=== PATIENT | female | born 1970 | race Native Hawaiian/Other Pacific Islander ===

== ENCOUNTER 2017-07-07 03:22 | Emergency (ER) | payer MEDICAID ==
[~2017-07-07] VITALS: Ht 157.5 cm; Wt 68.0 kg
[~2017-07-07 03:22] MED LIST: DEPRESSION MED; OXYC15TA55 PO; TRAM50 PO
[2017-07-07 03:24] VITALS: BP 139/74; PULSE 76; RESP 16; TEMP 98.2; O2SAT 100
[2017-07-07] MEDS ORDERED: CIPR-9 PO (04:36)
[2017-07-07] MEDS ORDERED: METH750T PO (04:36)
[2017-07-07] MEDS ORDERED: PRED20 PO (04:36)
[2017-07-07] MEDS ORDERED: CYMB60CA PO (04:36)
[2017-07-07] MEDS ORDERED: SODIUM CHLOR 0.9% 1000 ML INJ 1,000 ML IV SCH (04:47)
--- NOTE | 2017-07-07 04:53 | PD ---
HPI Chief Complaint: Flank/Kidney Pain Time Seen by Provider: 04:39 Travel History International Travel<30 days: No Contact w/Intl Traveler<30days: No Traveled to known affect area: No History of Present Illness HPI The patient is a 46 year female who presents to the emergency department for left flank pain. The patient states she had left flank pain 2 weeks ago was seen at [facility] and was told that she may have an ovarian cyst or a kidney stone. The patient states she was placed on medications at that time and her symptoms improved. However, her abdominal pain and flank pain returned 2 days ago. The pain is located in the left flank and radiates into the superior aspect left leg and down into the left lower quadrant of the abdomen. She states she had hematuria 2 weeks ago, however, denies any current hematuria, dysuria, frequency, or urgency. She denies a vaginal bleeding or discharge, states her last menstrual cycle was 2 years ago. She denies any previous abdominal surgeries. The patient does have a history of fibromyalgia, lupus, and depression. Patient denies any assisted fever, chills, or sweats. She denies any current nausea, vomiting, diarrhea, or change in bowel habits. The patient states she was recently placed on Cipro, is unsure of what infection she had that required Cipro. PFS Past Medical History Autoimmune Disease: Yes (LUPUS) Depression: Yes Heart Rhythm Problems: No Cardiac Catheterization: No Cardiovascular Problems: No High Cholesterol: No Congestive Heart Failure: No Diabetes: No Diminished Hearing: No Respiratory: Yes Sleep Apnea: Yes (CPAP) ?: Not Past Surgical History Surgical History: No Previous Surgery Coronary Artery Bypass Graft: No Hysterectomy: Yes Social History Alcohol Use: No Tobacco Use: No Substance Use: No Allergies-Medications (Allergen,Severity, Reaction): Coded Allergies: No Known Allergies (Verified , 07/07/17) Reported Meds & Prescriptions Reported Meds & Active Scripts Active Reported Prednisone 20 Mg Tab 40 Mg PO DAILY Take 40 mg (2 tablets) daily for 5 days Methocarbamol 750 Mg Tab 750 Mg PO TID Cymbalta DR (Duloxetine HCl) 60 Mg Capdr 60 Mg PO DAILY Cipro (Ciprofloxacin HCl) 500 Mg Tab 500 Mg PO BID [Depression Med] Review of Systems Except as stated in HPI: all other systems reviewed are Neg General / Constitutional: No: Fever, Chills Cardiovascular: No: Chest Pain or Discomfort Respiratory: No: Shortness of Breath Gastrointestinal: No: Nausea, Vomiting, Diarrhea, Abdominal Pain Genitourinary: Positive: Hematuria (2 weeks ago, denies current hematuria), Flank Pain, No: Urgency, Frequency, Dysuria Musculoskeletal: Positive: Pain (pain that radiates from the left flank to the anterior aspect the left thigh) Physical Exam Narrative GENERAL: Awake, alert, nontoxic-appearing 46-year-old female who appears her stated age and is in no acute respiratory distress. SKIN: Focused skin assessment warm/dry. HEAD: Atraumatic. Normocephalic. EYES: Pupils equal and round. No scleral icterus. No injection or drainage. ENT: No nasal bleeding or discharge. Mucous membranes pink and moist. NECK: Trachea midline. No JVD. CARDIOVASCULAR: Regular rate and rhythm. No murmur appreciated. RESPIRATORY: No accessory muscle use. Clear to auscultation. Breath sounds equal bilaterally. GASTROINTESTINAL: Abdomen soft, tender palpation left flank and left lower quadrant. Back: No CVA tenderness. MUSCULOSKELETAL: No obvious deformities. No clubbing. No cyanosis. No edema. NEUROLOGICAL: Awake and alert. No obvious cranial nerve deficits. Motor grossly within normal limits. Normal speech. PSYCHIATRIC: Appropriate mood and affect; insight and judgment normal. Data Data Last Documented VS Vital Signs Date Time Temp Pulse Resp B/P (MAP) Pulse Ox O2 Delivery O2 Flow Rate FiO2 07/07/17 03:24 98.2 76 16 139/74 (95) 100 Orders Orders Complete Blood Count With Diff (07/07/17 04:47) Comprehensive Metabolic Panel (07/07/17 04:47) Lipase (07/07/17 04:47) Urinalysis - C+S If Indicated (07/07/17 04:47) Ct Abd/Pel W/O Iv Contrast (07/07/17 04:47) Iv Access Insert/Monitor (07/07/17 04:47) Ecg Monitoring (07/07/17 04:47) Oximetry (07/07/17 04:47) Morphine Inj (Morphine Inj) (07/07/17 05:00) Ondansetron Inj (Zofran Inj) (07/07/17 05:00) Sodium Chlor 0.9% 1000 Ml Inj (Ns 1000 M (07/07/17 04:47) Sodium Chloride 0.9% Flush (Ns Flush) (07/07/17 05:00) Ketorolac Inj (Toradol Inj) (07/07/17 05:00) Urine Culture (07/07/17 04:55) Labs Laboratory Tests Test 07/07/17 04:55 07/07/17 05:05 Urine Color YELLOW Urine Turbidity HAZY Urine pH 5.5 Urine Specific [place] 1.023 Urine Protein TRACE mg/dL Urine Glucose (UA) NEG mg/dL Urine Ketones NEG mg/dL Urine Occult Blood MOD Urine Nitrite NEG Urine Bilirubin NEG Urine Urobilinogen LESS THAN 2.0 MG/DL Urine Leukocyte Esterase SMALL Urine RBC /hpf Urine WBC 11 /hpf Urine Squamous Epithelial Cells 4 /hpf Urine Renal Epithelial Cells <1 /hpf Urine Calcium Oxalate Crystals MANY /hpf Urine Bacteria FEW /hpf Microscopic Urinalysis Comment CULTURE INDICATED White Blood Count 4.9 TH/MM3 Red Blood Count 3.98 MIL/MM3 Hemoglobin 12.2 GM/DL Hematocrit 36.7 % Mean Corpuscular Volume 92.3 FL Mean Corpuscular Hemoglobin 30.7 PG Mean Corpuscular Hemoglobin Concent 33.2 % Red Cell Distribution Width 13.9 % Platelet Count 200 TH/MM3 Mean Platelet Volume 9.8 FL Neutrophils (%) (Auto) 39.6 % Lymphocytes (%) (Auto) 47.4 % Monocytes (%) (Auto) 10.9 % Eosinophils (%) (Auto) 1.2 % Basophils (%) (Auto) 0.9 % Neutrophils # (Auto) 1.9 TH/MM3 Lymphocytes # (Auto) 2.3 TH/MM3 Monocytes # (Auto) 0.5 TH/MM3 Eosinophils # (Auto) 0.1 TH/MM3 Basophils # (Auto) 0.0 TH/MM3 CBC Comment DIFF FINAL Differential Comment Blood Urea Nitrogen 14 MG/DL Creatinine 0.65 MG/DL Random Glucose 92 MG/DL Total Protein 8.6 GM/DL Albumin 3.8 GM/DL Calcium Level 8.8 MG/DL Alkaline Phosphatase 128 U/L Aspartate Amino Transf (AST/SGOT) 33 U/L Alanine Aminotransferase (ALT/SGPT) 44 U/L Total Bilirubin 0.4 MG/DL Sodium Level 140 MEQ/L Potassium Level 3.6 MEQ/L Chloride Level 107 MEQ/L Carbon Dioxide Level 24.3 MEQ/L Anion Gap 9 MEQ/L Estimat Glomerular Filtration Rate 98 ML/MIN Lipase 193 U/L MDM Medical Decision Making Medical Screen Exam Complete: Yes Emergency Medical Condition: Yes Medical Record Reviewed: Yes Interpretation(s) Last Impressions Abdomen/Pelvis CT 07/07/17 0447 Signed Impressions: Service Date/Time: Friday, July 07, 2017 04:48 - CONCLUSION: 6 mm calcified stone in the extrarenal pelvis on the left side causing mild hydronephrosis. Anson Olivas MD Differential Diagnosis Differential diagnosis includes nephrolithiasis, hydronephrosis, pyelonephritis , UTI, cervicitis, PID, diverticulitis, muscle strain, radiculopathy. Narrative Course IV was established, labs are drawn and sent, and the patient was placed on cardiac telemetry monitoring and continuous pulse oximetry monitoring. Patient was administered morphine, Toradol, Zofran, and IV fluids. Noncontrast CT of the abdomen and pelvis was ordered to evaluate for nephrolithiasis. CT reveals a 6 mm stone with mild hydronephrosis. Creatinine is normal. UA reveals large amount of blood and 11 wbc's. The patient is already on Cipro. The patient was reevaluated at 5:50 AM, the patient's pain has improved. The patient will need referral from her primary physician, Dr. Beasley, to nephrology. The patient will be placed on ibuprofen, [place], and Flomax. She is advised to continue taking the Cipro. She will be provided a copy of her CT results and lab results at discharge. Diagnosis Primary Impression: Nephrolithiasis Patient Instructions: General Instructions Additional Instructions: Please provide a patient a copy of her CT results and lab results at discharge. Follow-up with your primary physician for referral to urology. Return if symptoms worsen or progress. Continue taking Cipro as previously directed. Med/Other Pt SpecificInfo: Prescription(s) given Scripts Ibuprofen (Ibuprofen) 600 Mg Tab 600 MG PO Q6H Y for Pain/Inflammation, #20 TAB 0 Refills Prov: Ethan Knapp MD 07/07/17 Hydrocodone-Acetaminophen ([place]) 5-325 mg Tab 1 TAB PO Q6H Y for PAIN, #15 TAB 0 Refills Prov: Ethan Knapp MD 07/07/17 Tamsulosin (Flomax) 0.4 Mg Cap 0.4 MG PO HS for Manage Prostate Problems, #7 CAP 0 Refills Prov: Ethan Knapp MD 07/07/17 Disposition: 01 DISCHARGE HOME Condition: Stable Ethan Knapp MD Jul 07, 2017 04:53
[2017-07-07] MEDS ORDERED: ONDANSETRON HCL 4 MG/2 ML VIAL IVP ONE (05:00)
[2017-07-07] MEDS ORDERED: MORPHINE SULFATE 4 MG/ML INJ IV PUSH ONE (05:00)
[2017-07-07] MEDS ORDERED: KETOROLAC TROMETHAMINE 30 MG/ML (IVP) VIAL IVP ONE (05:00)
[2017-07-07] MEDS ORDERED: SODIUM CHLORIDE 0.9% FLUSH 10 ML FLUSH IV FLUSH PRN (05:00)
--- NOTE | 2017-07-07 05:07 | RADRPT ---
EXAM DATE/TIME: 07/07/2017 04:48 [facility] COMPARISON: No previous studies available for comparison. INDICATIONS : Left flank pain. ORAL CONTRAST: No oral contrast ingested. RADIATION DOSE: 13.42 CTDIvol (mGy) MEDICAL HISTORY : Lupus. SURGICAL HISTORY : Hysterectomy. ENCOUNTER: Initial ACUITY: 1 day PAIN SCALE: 8/10 LOCATION: Left flank TECHNIQUE: Renal colic protocol. Volumetric scanning of the abdomen and pelvis was performed. Using automated exposure control and adjustment of the mA and/or kV according to patient size, radiation dose was kep t as low as reasonably achievable to obtain optimal diagnostic quality images. DICOM format image da ta is available electronically for review and comparison. FINDINGS: Right side: No calcified stones. No evidence of hydronephrosis. Left side: 6 mm calcified stone in the extrarenal pelvis with mild dilation of the collecting system of left kid ricki. No additional calcified stones seen in the collecting system. The distal left ureter is normal in dimension. Bladder: Nondistended. No calcifications within the lumen. Other: No dilated loops of small or large bowel. Bilateral fallopian tube metallic wires and flocculent zenaida cification in the body of the uterus measuring 11 mm, probably representing uterine fibroid. No evid ence of free fluid in the cul-de-sac. CONCLUSION: 6 mm calcified stone in the extrarenal pelvis on the left side causing mild hydronephrosis. Anson Olivas MD on July 07, 2017 at 5:03 Board Certified Radiologist. This report was verified electronically.
[2017-07-07 05:40] LABS: BACTERIA, URINE FEW /hpf; BLOOD, URINE MOD (NEG); CALCIUM OXALATE CRYSTALS,URINE MANY /hpf; COMMENT (UR) CULTURE INDICATED; CULTURE IF INDICATED CULTURE INDICATED; GLUCOSE,URINE NEG (NEG); KETONE, URINE NEG (NEG); NITRITE,URINE NEG (NEG); PH, URINE 5.5 (5.0-8.5); RENAL EPITHELIAL CELLS <1 /hpf; SQUAMOUS EPITHELIAL CELL URINE 4 /hpf (0-5); URINE COLOR YELLOW (YELLW/STRAW)
[2017-07-07 05:41] LABS: AUTOMATED NEUTROPHIL # 1.9 TH/MM3 (1.8-7.7); BASOPHIL % 0.9 % (0.0-2.0); EOSINOPHIL # 0.1 TH/MM3 (0-0.4); EOSINOPHIL % 1.2 % (0.0-4.0); HEMATOCRIT 36.7 % (35.0-46.0); HEMO FLAGS DIFF FINAL; LYMPH % 47.4 % (9.0-44.0); LYMPHOCYTE # 2.3 TH/MM3 (1.0-4.8); MEAN CELL VOLUME 92.3 FL (80.0-100.0); MEAN CORPUSCULAR HEMOGLOBIN 30.7 PG (27.0-34.0); MEAN CORPUSCULAR HGB CONC 33.2 % (32.0-36.0); MONO % 10.9 % (0.0-8.0); NEUT % 39.6 % (16.0-70.0); PLATELET COUNT 200 TH/MM3 (150-450); RED BLOOD COUNT 3.98 MIL/MM3 (4.00-5.30); RED CELL DISTRIBUTION WIDTH 13.9 % (11.6-17.2); WHITE BLOOD COUNT 4.9 TH/MM3 (4.0-11.0)
[2017-07-07 05:48] LABS: ALT (GPT) 44 U/L (10-53); ANION GAP 9 MEQ/L (5-15); AST (GOT) 33 U/L (15-37); BICARBONATE 24.3 MEQ/L (21.0-32.0); BLOOD UREA NITROGEN 14 MG/DL (7-18); CHLORIDE 107 MEQ/L (98-107); GLOMERULAR FILTRATION RATE 98 ML/MIN (>89); POTASSIUM 3.6 MEQ/L (3.5-5.1); SODIUM (NA) 140 MEQ/L (136-145)
[2017-07-07 05:50] LABS: ALKALINE PHOSPHATASE 128 U/L (45-117); TOTAL BILIRUBIN ADULT 0.4 MG/DL (0.2-1.0)
[2017-07-07] MEDS ORDERED: IBUP-232 PO (05:57)
[2017-07-07] MEDS ORDERED: NORC5TAB PO (05:57)
[2017-07-07] MEDS ORDERED: TAMS5CAP PO (05:57)
[2017-07-07 06:15] VITALS: RESP 16
== END 2017-07-07 06:29 | disposition home or self-care (01) ==
LOC: NEPE 03:22
DX: N20.0 Calculus of kidney (principal); R10.32 Left lower quadrant pain; M79.7 Fibromyalgia; M32.9 Systemic lupus erythematosus, unspecified
CPT/HCPCS: 74176; 80053; 81001; 83690; 85025; 87086; 96361; 96374; 96375; 99285; J1885; J2270; J2405; J7030

== ENCOUNTER 2018-01-31 10:46 | Observation (INO) | payer MEDICAID ==
[2018-01-31] VITALS (9 sets, daily range): BP systolic 105–150; BP diastolic 56–69; PULSE 64–84; RESP 16–18; TEMP 97.9–98.8; O2SAT 97–100
[~2018-01-31 10:46] MED LIST changes: +CIPR-9 PO; +CYMB60CA PO; +IBUP-232 PO; +METH750T PO; +NORC5TAB PO; -OXYC15TA55 PO; +PRED20 PO; +TAMS5CAP PO; -TRAM50 PO
[2018-01-31] MEDS ORDERED: SODIUM CHLORIDE 0.9% FLUSH 10 ML FLUSH IVF PRN (11:30)
[2018-01-31] MEDS ORDERED: ASPIRIN 81 MG CHEW TAB PO ONE (11:30)
--- NOTE | 2018-01-31 11:34 | PD ---
HPI Chief Complaint: Cardiac Complaint Time Seen by Provider: 11:14 Travel History International Travel<30 days: No Contact w/Intl Traveler<30days: No History of Present Illness HPI 47-year-old female with a history of lupus, depression, chronic headaches presents emergency department complaining of shortness of breath and chest pain that started Sunday. Patient states that she was upset and screaming at her children on Sunday, went to her room to lay down and her chest started hurting then. Patient points to her left midsternal region and describes it as "heavy" with associated left arm and hand heaviness. Patient states that this lasted approximately 20 minutes before resolving spontaneously. Patient states that over the next 2 days the symptoms recurred and decided to go to the urgent care today for evaluation. Patient states that they referred her to the emergency department for evaluation. Currently, says that her pain is located in the left midsternal region described as heavy although not as intense as this was on Sunday. In addition, patient says she has hand tingling but denies any numbness. Says that she feels slightly short of breath but describes it more as unable to take a deep breath. She denies any fevers, chills, cough, congestion, abdominal pain, back pain. Says that she does follow a flask cleaner and was seen last month. Says that the labs were "normal". She was diagnosed with high cholesterol and was given a cholesterol medication and an inhaler. Says her last stress test was in 2012 which was normal. She does not remember her last echocardiogram. She denies any history of TX or other cardiac complaints. PFSH Past Medical History Autoimmune Disease: Yes (LUPUS) Depression: Yes Heart Rhythm Problems: No Cardiac Catheterization: No Cardiovascular Problems: No High Cholesterol: No Chest Pain: Yes Congestive Heart Failure: No Diabetes: No Diminished Hearing: No Respiratory: Yes Sleep Apnea: Yes (CPAP) ?: Not Past Surgical History Coronary Artery Bypass Graft: No Hysterectomy: Yes Social History Alcohol Use: No Tobacco Use: No Substance Use: No Allergies-Medications (Allergen,Severity, Reaction): Coded Allergies: No Known Allergies (Verified Allergy, Unknown, 01/31/18) Reported Meds & Prescriptions Reported Meds & Active Scripts Active Reported Trazodone (Trazodone HCl) 100 Mg Tablet 100 Mg PO HS Review of Systems Except as stated in HPI: all other systems reviewed are Neg Physical Exam Narrative GENERAL: Well-developed, well-nourished in no apparent distress, resting comfortably in bed SKIN: Focused skin assessment warm/dry. HEAD: Atraumatic. Normocephalic. EYES: Pupils equal and round. No scleral icterus. No injection or drainage. ENT: No nasal bleeding or discharge. Mucous membranes pink and moist. NECK: Trachea midline. No JVD. CARDIOVASCULAR: Regular rate and rhythm. No murmur appreciated. somewhat decreased heart sounds RESPIRATORY: No accessory muscle use. Questionable rales GASTROINTESTINAL: Abdomen soft, non-tender, nondistended. Hepatic and splenic margins not palpable. MUSCULOSKELETAL: No obvious deformities. No clubbing. No cyanosis. No edema. Homans sign negative bilaterally. Mild TTP to chest wall NEUROLOGICAL: Awake and alert. No obvious cranial nerve deficits. Motor grossly within normal limits. Normal speech. PSYCHIATRIC: Appropriate mood and affect; insight and judgment normal. Data Data Last Documented VS Vital Signs Date Time Temp Pulse Resp B/P (MAP) Pulse Ox O2 Delivery O2 Flow Rate FiO2 01/31/18 11:42 100 Room Air 01/31/18 11:42 69 18 01/31/18 10:55 98.8 Orders Orders Electrocardiogram (01/31/18 11:28) Ckmb (Isoenzyme) Profile (01/31/18 11:28) Complete Blood Count With Diff (01/31/18 11:28) Comprehensive Metabolic Panel (01/31/18 11:28) D-Dimer (01/31/18 11:28) Magnesium (Mg) (01/31/18 11:28) Prothrombin Time / Inr (Pt) (01/31/18 11:28) Act Partial Throm Time (Ptt) (01/31/18 11:28) Troponin I (01/31/18 11:28) Chest, Single Ap (01/31/18 11:28) Ecg Monitoring (01/31/18 11:28) Bilateral Bp Monitoring (01/31/18 11:28) Iv Access Insert/Monitor (01/31/18 11:28) Oximetry (01/31/18 11:28) Oxygen Administration (01/31/18 11:28) Aspirin Chew (Aspirin Chew) (01/31/18 11:30) Sodium Chloride 0.9% Flush (Ns Flush) (01/31/18 11:30) Activity Bed Rest With Brp (01/31/18 12:57) Vital Signs (Adult) Q4H (01/31/18 12:57) Cardiac Rhythm .As Directed (01/31/18 12:57) Notify Dr: Other .PRN (01/31/18 12:57) Notify Dr. Parameters (01/31/18 12:57) Ckmb (Isoenzyme) Profile (01/31/18 14:43) Ckmb (Isoenzyme) Profile (01/31/18 17:43) Troponin I (01/31/18 14:43) Troponin I (01/31/18 17:43) Electrocardiogram (01/31/18 14:43) Electrocardiogram (01/31/18 17:43) ^ Obtain (01/31/18 12:57) Acetaminophen (Tylenol) (01/31/18 13:00) Patent Drafter / Telemetry [email or web address] (01/31/18 12:57) Admit Order (Ed Use Only) (01/31/18 12:57) Labs Laboratory Tests Test 01/31/18 11:43 White Blood Count 3.0 TH/MM3 Red Blood Count 4.17 MIL/MM3 Hemoglobin 12.8 GM/DL Hematocrit 37.8 % Mean Corpuscular Volume 90.8 FL Mean Corpuscular Hemoglobin 30.6 PG Mean Corpuscular Hemoglobin Concent 33.7 % Red Cell Distribution Width 13.8 % Platelet Count 216 TH/MM3 Mean Platelet Volume 9.8 FL Neutrophils (%) (Auto) 40.0 % Lymphocytes (%) (Auto) 45.8 % Monocytes (%) (Auto) 12.2 % Eosinophils (%) (Auto) 1.5 % Basophils (%) (Auto) 0.5 % Neutrophils # (Auto) 1.2 TH/MM3 Lymphocytes # (Auto) 1.4 TH/MM3 Monocytes # (Auto) 0.4 TH/MM3 Eosinophils # (Auto) 0.0 TH/MM3 Basophils # (Auto) 0.0 TH/MM3 CBC Comment DIFF FINAL Differential Comment Prothrombin Time 10.5 SEC Prothromb Time International Ratio 1.0 RATIO Activated Partial Thromboplast Time 25.2 SEC D-Dimer Quantitative (PE/DVT) LESS THAN 0.19 MG/L FEU Blood Urea Nitrogen 11 MG/DL Creatinine 0.67 MG/DL Random Glucose 74 MG/DL Total Protein 9.1 GM/DL Albumin 4.0 GM/DL Calcium Level 9.2 MG/DL Magnesium Level 2.1 MG/DL Alkaline Phosphatase 131 U/L Aspartate Amino Transf (AST/SGOT) 28 U/L Alanine Aminotransferase (ALT/SGPT) 37 U/L Total Bilirubin 0.5 MG/DL Sodium Level 136 MEQ/L Potassium Level 3.7 MEQ/L Chloride Level 101 MEQ/L Carbon Dioxide Level 28.2 MEQ/L Anion Gap 7 MEQ/L Estimat Glomerular Filtration Rate 114 ML/MIN Total Creatine Kinase 73 U/L Troponin I LESS THAN 0.02 NG/ML MDM Medical Decision Making Medical Screen Exam Complete: Yes Emergency Medical Condition: Yes Differential Diagnosis ACS, pericarditis, pericardial effusion, PE, atypical chest pain Narrative Course 47-year-old female with a history of lupus, depression, chronic headaches presents emergency department complaining of shortness of breath and chest pain that started Sunday. Patient states that she was upset and screaming at her children on Sunday, went to her room to lay down and her chest started hurting then. Patient points to her left midsternal region and describes it as "heavy" with associated left arm and hand heaviness. Patient states that this lasted approximately 20 minutes before resolving spontaneously. Patient states that over the next 2 days the symptoms recurred and decided to go to the urgent care today for evaluation. Patient states that they referred her to the emergency department for evaluation. Currently, says that her pain is located in the left midsternal region described as heavy although not as intense as this was on Sunday. In addition, patient says she has hand tingling but denies any numbness. Says that she feels slightly short of breath but describes it more as unable to take a deep breath. She denies any fevers, chills, cough, congestion, abdominal pain, back pain. Says that she does follow a flask cleaner and was seen last month. Says that the labs were "normal". She was diagnosed with high cholesterol and was given a cholesterol medication and an inhaler. Says her last stress test was in 2012 which was normal. She does not remember her last echocardiogram. She denies any history of TX or other cardiac complaints. Vital signs stable. EKG shows sinus rhythm at rate [address] elevation or depression. CXR clear, without acute process. CBC & BMP Diagram 01/31/18 11:43 Total Protein 9.1 H, Albumin 4.0, Calcium Level 9.2, Magnesium Level 2.1, Alkaline Phosphatase 131 H, Aspartate Amino Transf (AST/SGOT) 28, Alanine Aminotransferase (ALT/SGPT) 37, Total Bilirubin 0.5 Cardiac enzymes negative. D-dimer less than 0.19 CBC stable. Patient will be admitted to the chest pain center. Because patient has a history of lupus the last cardiac workup that I can see and that she remembers is 2012, I do believe it is reasonable to stay for an observation period. Says she has seen a flask cleaner however, she is unable to tell me her diagnosis except for HLD and was prescribed an inhaler. Diagnosis Primary Impression: Atypical chest pain Admitting Information Admitting Physician Requests: Observation Condition: Stable Arina Ovalle Jan 31, 2018 11:34
--- NOTE | 2018-01-31 11:54 | RADRPT ---
EXAM DATE/TIME: 01/31/2018 11:38 [facility] COMPARISON: No previous studies available for comparison. INDICATIONS : Chest pain for 4 days. MEDICAL HISTORY : [place]us. SURGICAL HISTORY : Hysterectomy. ENCOUNTER: Initial ACUITY: 4 - 6 days PAIN SCORE: 4/10 LOCATION: Bilateral chest FINDINGS: A single view of the chest demonstrates the lungs to be symmetrically aerated without evidence of mas s, infiltrate or effusion. The cardiomediastinal contours are unremarkable. Osseous structures are intact. CONCLUSION: No acute disease. Ramón Parikh MD on January 31, 2018 at 11:52 Board Certified Radiologist. This report was verified electronically.
[2018-01-31 12:02] LABS: AUTOMATED NEUTROPHIL # 1.2 TH/MM3 (1.8-7.7); BASOPHIL % 0.5 % (0.0-2.0); EOSINOPHIL % 1.5 % (0.0-4.0); HEMATOCRIT 37.8 % (35.0-46.0); HEMOGLOBIN 12.8 GM/DL (11.6-15.3); LYMPH % 45.8 % (9.0-44.0); LYMPHOCYTE # 1.4 TH/MM3 (1.0-4.8); MEAN CELL VOLUME 90.8 FL (80.0-100.0); MEAN CORPUSCULAR HEMOGLOBIN 30.6 PG (27.0-34.0); MEAN CORPUSCULAR HGB CONC 33.7 % (32.0-36.0); MEAN PLATELET VOLUME 9.8 FL (7.0-11.0); MONO % 12.2 % (0.0-8.0); MONOCYTE # 0.4 TH/MM3 (0-0.9); PLATELET COUNT 216 TH/MM3 (150-450); RED BLOOD COUNT 4.17 MIL/MM3 (4.00-5.30); RED CELL DISTRIBUTION WIDTH 13.8 % (11.6-17.2)
[2018-01-31 12:17] LABS: PROTHROMBIN TIME - PATIENT 10.5 SEC (9.8-11.6)
[2018-01-31 12:18] LABS: D-DIMER LESS THAN 0.19 MG/L FEU (0.00-0.50)
[2018-01-31 12:20] LABS: AST (GOT) 28 U/L (15-37); BICARBONATE 28.2 MEQ/L (21.0-32.0); BLOOD UREA NITROGEN 11 MG/DL (7-18); CALCIUM 9.2 MG/DL (8.5-10.1); CHLORIDE 101 MEQ/L (98-107); CREATININE 0.67 MG/DL (0.50-1.00); GLOMERULAR FILTRATION RATE 114 ML/MIN (>89); GLUCOSE,RANDOM 74 MG/DL (74-106); MAGNESIUM 2.1 MG/DL (1.5-2.5); SODIUM (NA) 136 MEQ/L (136-145)
[2018-01-31 12:21] LABS: ALT (GPT) 37 U/L (10-53)
[2018-01-31 12:24] LABS: ALKALINE PHOSPHATASE 131 U/L (45-117); TOTAL BILIRUBIN ADULT 0.5 MG/DL (0.2-1.0); TOTAL PROTEIN 9.1 GM/DL (6.4-8.2); TROPONIN I LESS THAN 0.02 NG/ML (0.02-0.05)
[2018-01-31] MEDS ORDERED: PILO5TAB3 PO (12:27)
[2018-01-31] MEDS ORDERED: TRAZ100T10 PO (12:27)
[2018-01-31] MEDS ORDERED: FLUO-1 PO (12:27)
[2018-01-31] MEDS ORDERED: ARIP2 PO (12:27)
[2018-01-31] MEDS ORDERED: ACETAMINOPHEN 500 MG CPLT PO PRN (13:00)
--- NOTE | 2018-01-31 13:04 | PD ---
Physical Exam Date Seen by Provider: Jan 31, 2018 Narrative Patient comes in with a chief complaint of chest pain. She looks well clinically. Data Data Last Documented VS Vital Signs Date Time Temp Pulse Resp B/P (MAP) Pulse Ox O2 Delivery O2 Flow Rate FiO2 01/31/18 11:42 100 Room Air 01/31/18 11:42 69 18 01/31/18 10:55 98.8 Orders Orders Electrocardiogram (01/31/18 11:28) Ckmb (Isoenzyme) Profile (01/31/18 11:28) Complete Blood Count With Diff (01/31/18 11:28) Comprehensive Metabolic Panel (01/31/18 11:28) D-Dimer (01/31/18 11:28) Magnesium (Mg) (01/31/18 11:28) Prothrombin Time / Inr (Pt) (01/31/18 11:28) Act Partial Throm Time (Ptt) (01/31/18 11:28) Troponin I (01/31/18 11:28) Chest, Single Ap (01/31/18 11:28) Ecg Monitoring (01/31/18 11:28) Bilateral Bp Monitoring (01/31/18 11:28) Iv Access Insert/Monitor (01/31/18 11:28) Oximetry (01/31/18 11:28) Oxygen Administration (01/31/18 11:28) Aspirin Chew (Aspirin Chew) (01/31/18 11:30) Sodium Chloride 0.9% Flush (Ns Flush) (01/31/18 11:30) Activity Bed Rest With Brp (01/31/18 12:57) Vital Signs (Adult) Q4H (01/31/18 12:57) Cardiac Rhythm .As Directed (01/31/18 12:57) Notify Dr: Other .PRN (01/31/18 12:57) Notify Dr. Parameters (01/31/18 12:57) Ckmb (Isoenzyme) Profile (01/31/18 14:43) Ckmb (Isoenzyme) Profile (01/31/18 17:43) Troponin I (01/31/18 14:43) Troponin I (01/31/18 17:43) Electrocardiogram (01/31/18 14:43) Electrocardiogram (01/31/18 17:43) ^ Obtain (01/31/18 12:57) Acetaminophen (Tylenol) (01/31/18 13:00) Medicare Contact Specialist / Telemetry [email or web address] (01/31/18 12:57) Admit Order (Ed Use Only) (01/31/18 12:57) Labs Laboratory Tests Test 01/31/18 11:43 White Blood Count 3.0 TH/MM3 Red Blood Count 4.17 MIL/MM3 Hemoglobin 12.8 GM/DL Hematocrit 37.8 % Mean Corpuscular Volume 90.8 FL Mean Corpuscular Hemoglobin 30.6 PG Mean Corpuscular Hemoglobin Concent 33.7 % Red Cell Distribution Width 13.8 % Platelet Count 216 TH/MM3 Mean Platelet Volume 9.8 FL Neutrophils (%) (Auto) 40.0 % Lymphocytes (%) (Auto) 45.8 % Monocytes (%) (Auto) 12.2 % Eosinophils (%) (Auto) 1.5 % Basophils (%) (Auto) 0.5 % Neutrophils # (Auto) 1.2 TH/MM3 Lymphocytes # (Auto) 1.4 TH/MM3 Monocytes # (Auto) 0.4 TH/MM3 Eosinophils # (Auto) 0.0 TH/MM3 Basophils # (Auto) 0.0 TH/MM3 CBC Comment DIFF FINAL Differential Comment Prothrombin Time 10.5 SEC Prothromb Time International Ratio 1.0 RATIO Activated Partial Thromboplast Time 25.2 SEC D-Dimer Quantitative (PE/DVT) LESS THAN 0.19 MG/L FEU Blood Urea Nitrogen 11 MG/DL Creatinine 0.67 MG/DL Random Glucose 74 MG/DL Total Protein 9.1 GM/DL Albumin 4.0 GM/DL Calcium Level 9.2 MG/DL Magnesium Level 2.1 MG/DL Alkaline Phosphatase 131 U/L Aspartate Amino Transf (AST/SGOT) 28 U/L Alanine Aminotransferase (ALT/SGPT) 37 U/L Total Bilirubin 0.5 MG/DL Sodium Level 136 MEQ/L Potassium Level 3.7 MEQ/L Chloride Level 101 MEQ/L Carbon Dioxide Level 28.2 MEQ/L Anion Gap 7 MEQ/L Estimat Glomerular Filtration Rate 114 ML/MIN Total Creatine Kinase 73 U/L Troponin I LESS THAN 0.02 NG/ML MDM Supervised Visit with VIKI: Yes Narrative Course I, Dr. Mcclure, have reviewed the advance practice practitioner's documentation and am in agreement, met with the patient face to face, made the diagnosis, and the medical decision making was done by me. *My assessment and Findings: CBC & BMP Diagram 01/31/18 11:43 Total Protein 9.1 H, Albumin 4.0, Calcium Level 9.2, Magnesium Level 2.1, Alkaline Phosphatase 131 H, Aspartate Amino Transf (AST/SGOT) 28, Alanine Aminotransferase (ALT/SGPT) 37, Total Bilirubin 0.5 Troponin less than 0.02. Please see Arina Ovalle PA-C's note for further details, lab and radiology results, final diagnosis and disposition. Condition: Stable Aundrea Mcclure MD Jan 31, 2018 13:04
[2018-01-31] MEDS ORDERED: ONDANSETRON HCL 4 MG/2 ML VIAL IV PUSH PRN (15:45)
[2018-01-31] MEDS ORDERED: ACETAMINOPHEN/HYDROcodone 325 MG/7.5 MG TAB PO PRN (15:45)
[2018-01-31] MEDS ORDERED: ALPRAZolam 0.25 MG TAB PO PRN (15:45)
[2018-01-31 15:48] LABS: TROPONIN I LESS THAN 0.02 NG/ML (0.02-0.05)
--- NOTE | 2018-01-31 15:50 | HHI.HP ---
[facility] Primary Care Physician Lacie Beasley M.D. Chief Complaint CHEST PAIN History of Present Illness This is a 47-year-old female with history of lupus, fibromyalgia, depression presents to ED with primary complaint of chest discomfort. However patient states that some of her pain began a little more than a week ago. States she is at home when she fell and hit her left side against the wall. Did not fall. There is no loss of consciousness. But she states that she essentially had discomforts all over her body. States that she went [facility] had a bunch of x-rays and found no fractures. Then 3 days ago she began having left upper chest discomfort that was intermittent. When it occurs it lasts for a few seconds at a time but recurs many times. She is found that when she gets upset the discomfort may occur at that point. She states an example that is when she was screaming at her children, states that was the first episode of discomfort. Describes it as a sharp and heavy discomfort. Denies shortness of breath, nausea, diaphoresis with her symptoms. She went to an urgent care center for evaluation and was advised to come to the ED. Denies history of hypertension, hyperlipidemia, diabetes, and CAD. States had a similar episode a few years ago and had a stress test and she believes that was normal. Upon reviewing records she had a nonischemic Lexiscan at this facility April 2013. Currently feeling okay. Denies recent illness. Denies fevers or chills. Denies . States she has followed a global manager and the global manager put her on cholesterol medication but she has not taken it. She cannot recall the name of her global manager but states has been between a year and half and 2 years ago that she saw him. Review of Systems General: Patient denies fevers, chills recent, and recent travel HEENT: Patient denies headache, sore throat, difficulty swallowing. Cardiovascular: Has the chest discomfort as mentioned above. Denies sensation of heart beating rapidly or irregularly. No syncope. Denies diaphoresis. Respiratory: Denies shortness of breath or inspirational chest discomfort. Denies coughing wheezing or hemoptysis. GI: Patient denies nausea, vomiting, diarrhea, abdominal pain, bloody stools. Musculoskeletal: Generalized aches from a fall about a week ago. Patient denies joint pain or edema. Denies calf pain or edema. Neurovascular: Patient denies numbness, tingling, weakness in extremities. Denies headache. Endocrine: Denies polyuria and polydipsia. Hematologic: Denies easy bruising. Skin: Denies rash or itching. Past Family Social History Allergies: Coded Allergies: No Known Allergies (Verified Allergy, Unknown, 01/31/18) Past Medical History Lupus, fibromyalgia, depression, hyperlipidemia however she does not take medication for hyperlipidemia as prescribed by her physician. Denies diabetes, CAD, and hypertension. Past Surgical History States she had hysterectomy. Reported Medications Reported Meds & Active Scripts Active Reported Trazodone (Trazodone HCl) 100 Mg Tablet 100 Mg PO HS Active Ordered Medications Current Medications Medications (Trade) Dose Ordered Sig/Sudarshan Route Start Time Stop Time Status Last Admin (NS Flush) 2 ml UNSCH PRN IVF 01/31/18 11:30 (Tylenol) 500 mg Q4H PRN PO 01/31/18 13:00 (Desyrel) 100 mg HS PO 01/31/18 21:00 ([place] 7.5-325 Mg) 1 tab Q4H PRN PO 01/31/18 15:45 UNV (Zofran Inj) 4 mg Q6H PRN IV PUSH 01/31/18 15:45 UNV (Aspirin) 325 mg DAILY PO 02/01/18 09:00 UNV (Xanax) 0.25 mg Q8H PRN PO 01/31/18 15:45 UNV Family History Denies family history of CAD. Social History Non-smoker. Denies alcohol or illicit drug use. Physical Exam Vital Signs Vital Signs Date Time Temp Pulse Resp B/P (MAP) Pulse Ox O2 Delivery O2 Flow Rate FiO2 01/31/18 15:31 98.2 65 16 117/56 (76) 100 01/31/18 11:42 100 Room Air 01/31/18 11:42 69 18 100 Room Air 01/31/18 11:06 84 18 150/60 (90) 100 Room Air 01/31/18 11:06 71 18 100 Room Air 01/31/18 10:55 98.8 75 16 129/69 (89) 99 Physical Exam GENERAL: This is a well-nourished, well-developed patient, in no apparent distress. Patient speaks in clear complete sentences. Patient is pleasant. HEENT: Head is atraumatic and normocephalic. Neck is supple without lymphadenopathy and trachea is midline. No JVD or carotid bruits. CARDIOVASCULAR: Regular rate and rhythm without murmurs, gallops, or rubs. RESPIRATORY: Clear to auscultation. Breath sounds equal bilaterally. No wheezes , rales, or rhonchi. Left upper chest wall is tender. No use of accessory muscles. GASTROINTESTINAL: Abdomen is nontender, nondistended. Abdomen soft. No obvious pulsatile mass or bruit. No CVA tenderness. Strong femoral pulses bilaterally. Normal bowel sounds in all quadrants. MUSCULOSKELETAL: Patient is moving upper and lower extremities freely. No calf tenderness or edema, no Homans sign. Strong pulses in upper and lower extremities. NEUROLOGICAL: Patient is alert and oriented. Cranial nerves 2-12 are grossly intact. No focal deficits and speech is clear. SKIN: No rash and turgor is normal. Laboratory Laboratory Tests Test 01/31/18 11:43 01/31/18 15:02 White Blood Count 3.0 Red Blood Count 4.17 Hemoglobin 12.8 Hematocrit 37.8 Mean Corpuscular Volume 90.8 Mean Corpuscular Hemoglobin 30.6 Mean Corpuscular Hemoglobin Concent 33.7 Red Cell Distribution Width 13.8 Platelet Count 216 Mean Platelet Volume 9.8 Neutrophils (%) (Auto) 40.0 Lymphocytes (%) (Auto) 45.8 Monocytes (%) (Auto) 12.2 Eosinophils (%) (Auto) 1.5 Basophils (%) (Auto) 0.5 Neutrophils # (Auto) 1.2 Lymphocytes # (Auto) 1.4 Monocytes # (Auto) 0.4 Eosinophils # (Auto) 0.0 Basophils # (Auto) 0.0 CBC Comment DIFF FINAL Differential Comment Prothrombin Time 10.5 Prothromb Time International Ratio 1.0 Activated Partial Thromboplast Time 25.2 D-Dimer Quantitative (PE/DVT) LESS THAN 0.19 Blood Urea Nitrogen 11 Creatinine 0.67 Random Glucose 74 Total Protein 9.1 Albumin 4.0 Calcium Level 9.2 Magnesium Level 2.1 Alkaline Phosphatase 131 Aspartate Amino Transf (AST/SGOT) 28 Alanine Aminotransferase (ALT/SGPT) 37 Total Bilirubin 0.5 Sodium Level 136 Potassium Level 3.7 Chloride Level 101 Carbon Dioxide Level 28.2 Anion Gap 7 Estimat Glomerular Filtration Rate 114 Total Creatine Kinase 73 Troponin I LESS THAN 0.02 Result Diagram: 01/31/18 1143 01/31/18 1143 Imaging Last 48 hours Impressions Chest X-Ray 01/31/18 1128 Signed Impressions: Service Date/Time: January 11:38 - CONCLUSION: No acute disease. Ramón Parikh MD Course EKGs are sinus rhythm with inverted T waves in lead III and V1. No significant ST segment depressions or elevations. Caprini VTE Risk Assessment Caprini VTE Risk Assessment: No/Low Risk (score <= 1) Caprini Risk Assessment Model Point Value = 1 Point Value = 2 Point Value = 3 Point Value = 5 Age 41-60 Minor surgery BMI > 25 kg/m2 Swollen legs Varicose veins or History of unexplained or recurrent spontaneous Oral contraceptives or hormone replacement Sepsis (< 1 month) Serious lung disease, including pneumonia (< 1 month) Abnormal pulmonary function Acute myocardial infarction Congestive heart failure (< 1 month) History of inflammatory bowel disease Medical patient at bed rest Age 61-74 Arthroscopic surgery Major open surgery (> 45 min) Laparoscopic surgery (> 45 min) Malignancy Confined to bed (> 72 hours) Immobilizing plaster cast Central venous access Age >= 75 History of VTE Family history of VTE Factor V Leiden Prothrombin [id number] Lupus anticoagulant Anticardiolipin antibodies Elevated serum homocysteine Heparin-induced thrombocytopenia Other congenital or acquired thrombophilia Stroke (< 1 month) Elective arthroplasty Hip, pelvis, or leg fracture Acute spinal cord injury (< 1 month) Prophylaxis Regimen Total Risk Factor Score Risk Level Prophylaxis Regimen 0-1 Low Early ambulation 2 Moderate Order ONE of the following: *Sequential Compression Device (SCD) *Heparin 5000 units SQ BID 3-4 Higher Order ONE of the following medications: *Heparin 5000 units SQ TID *Enoxaparin/Lovenox 40 mg SQ daily (WT < 150 kg, CrCl > 30 mL/min) *Enoxaparin/Lovenox 30 mg SQ daily (WT < 150 kg, CrCl > 10-29 mL/min) *Enoxaparin/Lovenox 30 mg SQ BID (WT < 150 kg, CrCl > 30 mL/min) AND/OR *Sequential Compression Device (SCD) 5 or more Highest Order ONE of the following medications: *Heparin 5000 units SQ TID (Preferred with Epidurals) *Enoxaparin/Lovenox 40 mg SQ daily (WT < 150 kg, CrCl > 30 mL/min) *Enoxaparin/Lovenox 30 mg SQ daily (WT < 150 kg, CrCl > 10-29 mL/min) *Enoxaparin/Lovenox 30 mg SQ BID (WT < 150 kg, CrCl > 30 mL/min) AND *Sequential Compression Device (SCD) Assessment and Plan Assessment and Plan * Chest pain: Patient will continue to have serial cardiac enzymes and EKGs for ruling out purposes. She has been seen by Dr. Sb Atkinson of cardiology in the chest pain center. She will have a stress test and if that is nonischemic, she would then be discharged home with instructions to follow-up with PCP and cardiology. Return to ED for interval issues. * Hyperlipidemia: Patient states she was diagnosed hyperlipidemia and placed on medication but has not taken it. Patient should discuss this with her physician and likely restart the medication. Patient is stable at this time. She is agreeable to this plan. Edmundo Gallegos Jan 31, 2018 15:50
[2018-01-31] MEDS ORDERED: RESP: ALBUTEROL 2.5 MG/IPRATROPIUM 0.5 MG NEB (PRN) INH (16:00)
[2018-01-31] MEDS ORDERED: cloNIDine HCL 0.1 MG TAB PO PRN (16:00)
[2018-01-31 18:45] LABS: TROPONIN I LESS THAN 0.02 NG/ML (0.02-0.05)
[2018-01-31] MEDS ORDERED: traZODone HCL 100 MG TAB PO SCH (21:00)
[2018-02-01] VITALS (7 sets, daily range): BP systolic 101–107; BP diastolic 51–63; PULSE 54–73; RESP 16; TEMP 97.7–98; O2SAT 100
--- NOTE | 2018-02-01 07:35 | PD.CARD.PN ---
Subjective Subjective Remarks No complaints overnight, sleeping when entered room Objective Medications Current Medications Medications (Trade) Dose Ordered Sig/Sudarshan Route Start Time Stop Time Status Last Admin (NS Flush) 2 ml UNSCH PRN IVF 01/31/18 11:30 (Tylenol) 500 mg Q4H PRN PO 01/31/18 13:00 (Desyrel) 100 mg HS PO 01/31/18 21:00 01/31/18 21:12 ([place] 7.5-325 Mg) 1 tab Q4H PRN PO 01/31/18 15:45 (Zofran Inj) 4 mg Q6H PRN IV PUSH 01/31/18 15:45 (Aspirin) 325 mg DAILY PO 02/01/18 09:00 (Xanax) 0.25 mg Q8H PRN PO 01/31/18 15:45 (Duoneb Neb) 1 ampule Q4HR NEB PRN INH 01/31/18 16:00 ([place]) 0.1 mg Q4H PRN PO 01/31/18 16:00 Vital Signs / I&O Vital Signs Date Time Temp Pulse Resp B/P (MAP) Pulse Ox O2 Delivery O2 Flow Rate FiO2 02/01/18 04:49 69 02/01/18 04:48 71 02/01/18 04:00 54 02/01/18 03:35 97.7 59 16 101/53 (69) 100 02/01/18 00:35 97.7 73 16 106/51 (69) 100 02/01/18 00:00 60 01/31/18 21:30 97 01/31/18 21:29 97.9 69 16 105/57 (73) 100 01/31/18 19:59 74 01/31/18 15:45 64 01/31/18 15:42 01/31/18 15:31 98.2 65 16 117/56 (76) 100 01/31/18 13:34 98.4 68 16 117/56 (76) 98 01/31/18 11:42 100 Room Air 01/31/18 11:42 69 18 100 Room Air 01/31/18 11:06 84 18 150/60 (90) 100 Room Air 01/31/18 11:06 71 18 100 Room Air 01/31/18 10:55 98.8 75 16 129/69 (89) 99 Physical Exam GENERAL: Alert WN, WD, NAD, pleasant, female HEAD: NC, AT CV: RRR, without murmur, rub, gallop, no JVD, S1-S2 no S3-S4. RESP: Clear lungs throughout bilateral, no crackles, wheeze, rhonchi, symmetrical chest rise, nonlabored, able to speak in full sentences PSYCH: A+O x3, pleasant affect, appropriate speech, mood, insight and judgment SKIN: Normal turgor, normal texture Laboratory Laboratory Tests Test 01/31/18 11:43 01/31/18 15:02 01/31/18 18:10 White Blood Count 3.0 TH/MM3 Red Blood Count 4.17 MIL/MM3 Hemoglobin 12.8 GM/DL Hematocrit 37.8 % Mean Corpuscular Volume 90.8 FL Mean Corpuscular Hemoglobin 30.6 PG Mean Corpuscular Hemoglobin Concent 33.7 % Red Cell Distribution Width 13.8 % Platelet Count 216 TH/MM3 Mean Platelet Volume 9.8 FL Neutrophils (%) (Auto) 40.0 % Lymphocytes (%) (Auto) 45.8 % Monocytes (%) (Auto) 12.2 % Eosinophils (%) (Auto) 1.5 % Basophils (%) (Auto) 0.5 % Neutrophils # (Auto) 1.2 TH/MM3 Lymphocytes # (Auto) 1.4 TH/MM3 Monocytes # (Auto) 0.4 TH/MM3 Eosinophils # (Auto) 0.0 TH/MM3 Basophils # (Auto) 0.0 TH/MM3 CBC Comment DIFF FINAL Differential Comment Prothrombin Time 10.5 SEC Prothromb Time International Ratio 1.0 RATIO Activated Partial Thromboplast Time 25.2 SEC D-Dimer Quantitative (PE/DVT) LESS THAN 0.19 MG/L FEU Blood Urea Nitrogen 11 MG/DL Creatinine 0.67 MG/DL Random Glucose 74 MG/DL Total Protein 9.1 GM/DL Albumin 4.0 GM/DL Calcium Level 9.2 MG/DL Magnesium Level 2.1 MG/DL Alkaline Phosphatase 131 U/L Aspartate Amino Transf (AST/SGOT) 28 U/L Alanine Aminotransferase (ALT/SGPT) 37 U/L Total Bilirubin 0.5 MG/DL Sodium Level 136 MEQ/L Potassium Level 3.7 MEQ/L Chloride Level 101 MEQ/L Carbon Dioxide Level 28.2 MEQ/L Anion Gap 7 MEQ/L Estimat Glomerular Filtration Rate 114 ML/MIN Total Creatine Kinase 73 U/L 65 U/L 66 U/L Troponin I LESS THAN 0.02 NG/ML LESS THAN 0.02 NG/ML LESS THAN 0.02 NG/ML Imaging Last 24 hours Impressions Chest X-Ray 01/31/18 1128 Signed Impressions: Service Date/Time: January 11:38 - CONCLUSION: No acute disease. Ramón Parikh MD Assessment and Plan Assessment and Plan #1 Chest pain-ruled out with 3 sets of EKGs and cardiac enzymes. Previously seen by Dr. Sb Atkinson. Proceed with Lexiscan this morning as previously planned. Francine Chiang Feb 01, 2018 07:35
[2018-02-01] MEDS ORDERED: ASPIRIN 325 MG TAB PO SCH (09:00)
[2018-02-01] MEDS ORDERED: REGADENOSON INJ 0.4 MG/5 ML SYR ONE (12:46)
--- NOTE | 2018-02-01 14:41 | RADRPT ---
EXAM DATE/TIME: 02/01/2018 12:13 [place] COMPARISON: MYOCARDIAL PERF PHARM SPECT, GATED W/EF, April 29, 2013, 9:02. INDICATIONS : Chest pain started 3 days ago. Angina. DOSE: 26.3 mCi Tc99m Myoview at stress. 8.5 mCi Tc99m Myoview at rest. 0.4 mg Lexiscan STRESS SYMPTOMS: Dizziness, diaphoresis, tingling and back pain. EJECTION FRACTION: 70% MEDICAL HISTORY : Lupus. SURGICAL HISTORY : None. ENCOUNTER: Initial ACUITY: 3 days PAIN SCALE: 3/10 LOCATION: Bilateral chest TECHNIQUE: The patient underwent pharmacologic stress with infusion of prescribed dose. Continuous ECG tracing was monitored during stress. Gated SPECT imaging was performed after stress and conventional SPECT i maging was performed at rest. The examination was performed on a SPECT/CT scanner, both attenuation and non-corrected datasets were reviewed. FINDINGS: DISTRIBUTION: The maximum perfused segment at stress is in the anterior wall. PERFUSION STUDY: Mildly diminished relative perfusion involving the inferior wall and cardiac apex. No evidence of red istribution GATED STUDY: There is intact wall motion and thickening without hypokinetic or dyskinetic segments. CONCLUSION: Stable exam appearance. RISK CATEGORY: Low (<1% Annual Mortality Rate) Michael Grayson MD on February 01, 2018 at 14:15 Board Certified Radiologist. This report was verified electronically.
--- NOTE | 2018-02-01 14:47 | HHI.DCPOC ---
Discharge Care Plan Diagnosis: (1) Atypical chest pain Goals to Promote Your Health * To prevent worsening of your condition and complications * To maintain your health at the optimal level Directions to Meet Your Goals Take your medications as prescribed Follow your dietary instruction Follow activity as directed Keep your appointments as scheduled Take your immunizations and boosters as scheduled If your symptoms worsen call your PCP, if no PCP go to Urgent Care Center or Emergency Room Smoking is Dangerous to Your Health. Avoid second hand smoke Call the 24-hour hour crisis hotline for domestic abuse at Francine Chiang Feb 01, 2018 14:47
--- NOTE | 2018-02-02 11:32 | TR ---
Date Performed: 02/01/2018 Time Performed: 12:39:13 DOCTOR: Don Obando DRUG LIST: CLINICAL HISTORY: REASON FOR TEST: REASON FOR ENDING: OBSERVATION: CONCLUSION: COMMENTS: Lexiscan stress test was performed under standard four minute protocol. Radionuclide was injected one minute prior to ending the test. No electrocardiographic abormalities were present t o suggest ischemia. Nuclear imaging and interpretation are pending.
--- NOTE | 2018-02-02 11:53 | EKG ---
Date Performed: 01/31/2018 Time Performed: 18:20:21 PTAGE: 47 years EKG: Sinus rhythm POSSIBLE RIGHT VENTRICULAR CONDUCTION DELAY MODERATE VOLTAGE CRITERIA FOR LVH, CONSIDER NORMAL VARIA NT NONSPECIFIC T-WAVE ABNORMALITY BORDERLINE ECG PREVIOUS TRACING : 01/31/2018 15.38 Compared to previous tracing,Twave changes inferiorly are n ew. , DOCTOR: Don Obando Interpretating Date/Time 02/02/2018 11:52:53
--- NOTE | 2018-02-02 11:56 | EKG ---
Date Performed: 01/31/2018 Time Performed: 15:38:10 PTAGE: 47 years EKG: Sinus rhythm POSSIBLE RIGHT VENTRICULAR CONDUCTION DELAY BORDERLINE ECG Since PREVIOUS TRACING , no significant change noted DOCTOR: Don Obando Interpretating Date/Time 02/02/2018 11:54:56
--- NOTE | 2018-02-02 11:58 | EKG ---
Date Performed: 01/31/2018 Time Performed: 11:30:21 PTAGE: 47 years EKG: Sinus rhythm NORMAL ECG Since PREVIOUS TRACING , no significant change noted DOCTOR: Don Obando Interpretating Date/Time 02/02/2018 11:56:35
== END 2018-02-01 17:18 | disposition home or self-care (01) ==
LOC: NEPC 10:46 → NEDA 13:01 → NEPHCDU 15:33
PROVIDERS: ADMIT Internal Medicine Cardiovascular Disease; ATTEND Internal Medicine Cardiovascular Disease
DX: R07.89 Other chest pain (principal); R06.02 Shortness of breath; R20.2 Paresthesia of skin; E78.00 Pure hypercholesterolemia, unspecified; M79.7 Fibromyalgia; M32.9 Systemic lupus erythematosus, unspecified; G47.30 Sleep apnea, unspecified; F32.9 Major depressive disorder, single episode, unspecified
CPT/HCPCS: 71045; 78452; 80053; 82550; 83735; 84484; 85025; 85379; 85610; 85730; 93005; 93017; 99285; A9502; G0378; J2785